=== PATIENT | female | born 1975 | race Caucasian/White ===

== ENCOUNTER 2017-10-01 12:52 | Emergency (ER) | payer OTHER ==
[~2017-10-01] VITALS: Ht 165.1 cm; Wt 81.6 kg
[~2017-10-01 12:52] MED LIST: CIPRO500 MG PO; COL100 PO; ECO81 PO; LAC PO; LOP600 PO; METFORMIN ER500 M1 PO; PRA20 PO; PRI20 PO; ZES10 PO; ZOFRAN ODT4 MG SL
[2017-10-01 12:57] VITALS: Ht 165.1 cm; Wt 81.6 kg
[2017-10-01 13:40] LABS: microscopic required? NO
[2017-10-01 13:46] LABS: UA SPECIFIC GRAVITY 1.025 (1.005-1.035); urine erythrocyte NEGATIVE (NEGATIVE)
[2017-10-01 14:02] LABS: AMPHETAMINE QUAL UR NONE DETECTED (See below)
[2017-10-01 14:44] LABS: BASOPHIL % 0.8 % (0-2); PLATELET COUNT 238 x10^3mcL (130-400)
[2017-10-01 14:57] LABS: CALCIUM 7.5 mg/dL (8.5-10.1); CARBON DIOXIDE 28.7 mmol/L (21-32); CHLORIDE SERUM 108 mmol/L (98-107); CREATININE SERUM 0.6 mg/dL (0.6-1.0); GFR1 > 60 mL/min; GLUCOSE SERUM 146 mg/dL (74-106); POTASSIUM SERUM 4.1 mmol/L (3.5-5.1); SODIUM SERUM 141 mmol/L (136-145)
[2017-10-01 15:09] LABS: ALBUMIN 3.2 g/dL (3.4-5.0); ALKALINE PHOSPHATASE 59 U/L (46-116); ALT/SGPT 29 U/L (14-59); AMYLASE 31 U/L (25-115); AST/SGOT 15 U/L (15-37); BILIRUBIN TOTAL 0.3 mg/dL (0.20-1.00); CHOLESTEROL 181 mg/dL (<200); HDL CHOLESTEROL 43 mg/dL (40-60); LIPASE 162 IU/L (73-393); T4(THYROXINE) 8.1 ug/dL (4.7-13.3); TOTAL PROTEIN, SERUM 6.5 g/dL (6.4-8.2)
[2017-10-01 16:19] VITALS: BP 116/72
== END 2017-10-01 16:19 | disposition home or self-care (01) ==
LOC: ED 12:52
PROVIDERS: Emergency Medicine
DX: E11.9 Type 2 diabetes mellitus without complications (principal); I10 Essential (primary) hypertension; E66.9 Obesity, unspecified; E78.00 Pure hypercholesterolemia, unspecified; G89.29 Other chronic pain; M54.9 Dorsalgia, unspecified
CPT/HCPCS: 83880; J1815; J7030

== ENCOUNTER 2017-10-27 21:25 | Emergency (ER) | payer OTHER ==
[~2017-10-27] VITALS: Ht 162.6 cm; Wt 80.7 kg
[2017-10-27 21:59] VITALS: Ht 162.6 cm; Wt 80.7 kg
[2017-10-27 23:20] VITALS: BP 135/74
== END 2017-10-27 23:20 | disposition home or self-care (01) ==
LOC: ED 21:25
DX: L60.0 Ingrowing nail (principal); I10 Essential (primary) hypertension; E11.9 Type 2 diabetes mellitus without complications; Z90.49 Acquired absence of other specified parts of digestive tract; Z98.51 Tubal ligation status
CPT/HCPCS: J1885

== ENCOUNTER 2018-07-08 14:00 | Emergency (ER) | payer OTHER ==
[~2018-07-08] VITALS: Ht 162.6 cm; Wt 87.1 kg
[2018-07-08 14:09] VITALS: Ht 162.6 cm; Wt 87.1 kg
[2018-07-08 18:57] VITALS: BP 124/85
== END 2018-07-08 18:57 | disposition home or self-care (01) ==
LOC: ED 14:00
DX: G43.909 Migraine, unspecified, not intractable, without status migrainosus (principal); R11.2 Nausea with vomiting, unspecified; I10 Essential (primary) hypertension; E11.9 Type 2 diabetes mellitus without complications; Z98.51 Tubal ligation status; Z90.49 Acquired absence of other specified parts of digestive tract; Z98.890 Other specified postprocedural states
CPT/HCPCS: J3030

== ENCOUNTER 2018-12-04 11:37 | Emergency (ER) | payer OTHER ==
[~2018-12-04] VITALS: Ht 160 cm; Wt 82.6 kg
[2018-12-04 12:44] LABS: BASOPHIL % 0.7 % (0-2); PLATELET COUNT 253 x10^3mcL (130-400)
[2018-12-04 13:07] LABS: CALCIUM 8.5 mg/dL (8.5-10.1); CARBON DIOXIDE 27.6 mmol/L (21-32); CHLORIDE SERUM 103 mmol/L (98-107); CREATININE SERUM 0.6 mg/dL (0.6-1.0); GFR1 > 60 mL/min; GLUCOSE SERUM 153 mg/dL (74-106); POTASSIUM SERUM 4.2 mmol/L (3.5-5.1); SODIUM SERUM 138 mmol/L (136-145)
[2018-12-04 13:12] LABS: ALBUMIN 3.6 g/dL (3.4-5.0); ALKALINE PHOSPHATASE 67 U/L (46-116); ALT/SGPT 130 U/L (14-59); AST/SGOT 90 U/L (15-37); BILIRUBIN TOTAL 0.43 mg/dL (0.20-1.00); TOTAL PROTEIN, SERUM 7.5 g/dL (6.4-8.2)
[2018-12-04 13:51] LABS: microscopic required? NO
[2018-12-04 14:04] LABS: UA SPECIFIC GRAVITY >=1.030 (1.005-1.035); urine erythrocyte NEGATIVE (NEGATIVE)
[2018-12-04 15:14] VITALS: BP 101/63
== END 2018-12-04 15:14 | disposition home or self-care (01) ==
LOC: ED 11:37
PROVIDERS: Emergency Medicine
DX: R53.1 Weakness (principal); R51 Headache; R11.2 Nausea with vomiting, unspecified; R06.02 Shortness of breath; I10 Essential (primary) hypertension; E11.9 Type 2 diabetes mellitus without complications; Z90.49 Acquired absence of other specified parts of digestive tract; Z98.51 Tubal ligation status; Z98.890 Other specified postprocedural states
CPT/HCPCS: 82962; J1885; J2405; Q0092

== ENCOUNTER 2018-12-27 17:05 | Emergency (ER) | payer OTHER ==
[~2018-12-27] VITALS: Ht 162.6 cm; Wt 84.4 kg
[2018-12-27 17:14] VITALS: Ht 162.6 cm; Wt 84.4 kg
[2018-12-27 18:37] VITALS: BP 140/84
== END 2018-12-27 18:37 | disposition home or self-care (01) ==
LOC: ED 17:05
DX: S10.11XA Abrasion of throat, initial encounter (principal); I10 Essential (primary) hypertension; E11.9 Type 2 diabetes mellitus without complications; Z98.51 Tubal ligation status; Z90.49 Acquired absence of other specified parts of digestive tract; W45.8XXA Other foreign body or object entering through skin, initial encounter; Y93.89 Activity, other specified; Y92.89 Other specified places as the place of occurrence of the external cause; Y99.8 Other external cause status

== ENCOUNTER 2019-01-26 17:22 | Emergency (ER) | payer OTHER ==
[~2019-01-26] VITALS: Ht 162.6 cm; Wt 83.9 kg
[2019-01-26 17:49] VITALS: Ht 162.6 cm; Wt 83.9 kg
[2019-01-26 19:29] VITALS: BP 132/78
== END 2019-01-26 19:29 | disposition home or self-care (01) ==
LOC: ED 17:22
DX: N75.0 Cyst of Bartholin's gland (principal); I10 Essential (primary) hypertension; E11.9 Type 2 diabetes mellitus without complications; Z90.49 Acquired absence of other specified parts of digestive tract; Z98.51 Tubal ligation status; Z98.890 Other specified postprocedural states
CPT/HCPCS: J2001

== ENCOUNTER 2019-01-28 19:20 | Emergency (ER) | payer OTHER ==
[~2019-01-28] VITALS: Ht 162.6 cm; Wt 84.8 kg
[2019-01-28 19:37] VITALS: Ht 162.6 cm; Wt 84.8 kg
[2019-01-28 21:39] VITALS: BP 132/92
== END 2019-01-28 21:39 | disposition home or self-care (01) ==
LOC: ED 19:20
DX: N75.0 Cyst of Bartholin's gland (principal); Z48.01 Encounter for change or removal of surgical wound dressing
CPT/HCPCS: 82962

== ENCOUNTER 2020-01-23 12:08 | Emergency (ER) | payer OTHER ==
[~2020-01-23] VITALS: Ht 165.1 cm; Wt 83.5 kg
[2020-01-23 12:43] VITALS: Ht 165.1 cm; Wt 83.5 kg
[2020-01-23 16:51] VITALS: BP 119/77
== END 2020-01-23 16:51 | disposition home or self-care (01) ==
LOC: ED 12:08
DX: S39.012A Strain of muscle, fascia and tendon of lower back, initial encounter (principal); I10 Essential (primary) hypertension; E11.9 Type 2 diabetes mellitus without complications; E66.9 Obesity, unspecified; Z68.30 Body mass index [BMI] 30.0-30.9, adult; Z90.49 Acquired absence of other specified parts of digestive tract; Z98.890 Other specified postprocedural states; W10.9XXA Fall (on) (from) unspecified stairs and steps, initial encounter; Y93.89 Activity, other specified; Y99.8 Other external cause status; Y92.89 Other specified places as the place of occurrence of the external cause
CPT/HCPCS: J1100; J1885